=== PATIENT | female | born 1970 ===

== ENCOUNTER 2018-02-09 08:52 | Outpatient (CLI) | payer OTHER ==
[~2018-02-09] VITALS: Ht 160 cm; Wt 64.9 kg
== END 2018-02-09 09:15 | disposition home or self-care (01) ==
LOC: OFIC 805 08:52
DX: H60.591 Other noninfective acute otitis externa, right ear (principal); H90.41 Sensorineural hearing loss, unilateral, right ear, with unrestricted hearing on the contralateral side; H61.21 Impacted cerumen, right ear

== ENCOUNTER 2018-02-12 08:29 | Outpatient (CLI) | payer OTHER ==
[~2018-02-12] VITALS: Ht 152.4 cm; Wt 64.9 kg
== END 2018-02-12 08:40 | disposition home or self-care (01) ==
LOC: OFIC 805 08:29
DX: H60.8X1 Other otitis externa, right ear (principal); H91.8X1 Other specified hearing loss, right ear

== ENCOUNTER 2018-02-19 14:20 | Outpatient (CLI) | payer OTHER ==
[~2018-02-19] VITALS: Ht 152.4 cm; Wt 64.9 kg
== END 2018-02-19 14:40 | disposition home or self-care (01) ==
LOC: OFIC 805 14:20
DX: H60.591 Other noninfective acute otitis externa, right ear (principal); H90.41 Sensorineural hearing loss, unilateral, right ear, with unrestricted hearing on the contralateral side; H61.21 Impacted cerumen, right ear

== ENCOUNTER 2018-03-20 13:47 | Outpatient (CLI) | payer OTHER ==
[~2018-03-20] VITALS: Ht 152.4 cm; Wt 64.9 kg
== END 2018-03-20 14:00 | disposition home or self-care (01) ==
LOC: OFIC 805 13:47
DX: H91.8X1 Other specified hearing loss, right ear (principal); J32.8 Other chronic sinusitis; R04.0 Epistaxis; R09.81 Nasal congestion

== ENCOUNTER 2019-06-08 09:24 | Outpatient (CLI) | payer OTHER ==
[~2019-06-08] VITALS: Ht 152.4 cm; Wt 63.5 kg
== END 2019-06-08 11:36 | disposition home or self-care (01) ==
LOC: OFIC 805 09:24
DX: H60.8X1 Other otitis externa, right ear (principal); J30.89 Other allergic rhinitis; H61.23 Impacted cerumen, bilateral